=== PATIENT | female | born 1995 | race Caucasian/White ===

== ENCOUNTER 2017-11-25 23:41 | Emergency (ER) | payer MEDICAID ==
[~2017-11-25] VITALS: Ht 172.7 cm; Wt 135.2 kg
[2017-11-25 23:55] VITALS: BP_SYST 174
--- NOTE | 2017-11-26 00:10 | NUR ---
Patient to ER bed 7 to gown for evaluation. Side rails up. Report given to MEGAN OVIEDO.
--- NOTE | 2017-11-26 00:12 | NUR ---
Patient brought in with mother complaining of generalized abdominal pain radiating to chest with diarrhea and nausea for 5 days. Pain 4/10. Patient has medication for GERD but have not provided any relief. No other complaints/injuries per patient or as noted. Will continue to monitor.
--- NOTE | 2017-11-26 00:32 | NUR ---
Rima jimenez in ED - 11/26/17 at 0306 by [email or web address] MIKAEL Carrillo at bedside examining patient.
--- NOTE | 2017-11-26 00:32 | NUR ---
ER at bedside examining patient.
[2017-11-26 01:04] LABS: BILIRUBIN,URINE NEGATIVE (NEGATIVE); CLARITY/URINE CLEAR (CLEAR); COLOR,URINE YELLOW (YELLOW); GLUCOSE,URINE NEGATIVE (NEGATIVE); KETONES,URINE 1+ (NEGATIVE); LEUKOCYTE ESTERASE ,URINE NEGATIVE (NEGATIVE); NITRITE, URINE NEGATIVE (NEGATIVE); PH,URINE 6.5 (5.0-8.0); PROTEIN URINE NEGATIVE (NEGATIVE); UROBILINOGEN,URINE 0.2 (0.2-1.0)
[2017-11-26 01:06] LABS: BLOOD, URINE TRACE (NEGATIVE)
[2017-11-26 01:14] LABS: BACTERIA,URINE RARE /HPF (None Seen); RBC,URINE 0-3 /HPF (0-3); WBC,URINE 0-3 /HPF (0-3)
[2017-11-26 01:16] VITALS: BP_SYST 132
--- NOTE | 2017-11-26 01:16 | NUR ---
Patient given written and verbal discharge instructions and verbalizes understanding. ER MD discussed with patient the results and treatment provided. Patient in stable condition. ID arm band removed. Rx of Zofran given. Patient educated on pain management and to follow up with PMD in 2-3 days. Pain Scale 0/10 Opportunity for questions provided and answered. Medication side effect fact sheet provided.
== END 2017-11-26 01:16 | disposition home or self-care (01) ==
LOC: SED 23:41
DX: K29.70 Gastritis, unspecified, without bleeding (principal); E78.5 Hyperlipidemia, unspecified
CPT/HCPCS: 81000-TC; 81025; 99283